=== PATIENT | female | born 1940 | race Caucasian/White ===

== ENCOUNTER 2018-05-18 08:27 | Day surgery (SDC) | payer OTHER ==
[~2018-05-18 08:27] MED LIST: ARICEPT5 MG PO; ESCITALOPRAM OX10 MG PO; GLIPIZIDE ER5 MG PO; LEVO-T125 MCG PO; LORAZEPAM0.5 MG PO; LOSARTAN-HCTZ1 EAC1 PO; PROZAC10 M1 PO; SIMVASTATIN40 MG PO
== END 2018-05-18 10:45 | disposition home or self-care (01) ==
LOC: CIR.AMB 08:27
DX: C20 Malignant neoplasm of rectum (principal)
CPT/HCPCS: 36561; C1767

== ENCOUNTER 2018-08-31 06:57 | Day surgery (SDC) | payer OTHER | END 2018-08-31 12:20 | disposition home or self-care (01) | LOC: AMB-ENDOS 06:57 | DX: D12.2 Benign neoplasm of ascending colon (principal); D12.5 Benign neoplasm of sigmoid colon; K64.8 Other hemorrhoids ==

== ENCOUNTER 2018-09-30 14:15 | Inpatient (IN) | payer OTHER ==
[~2018-09-30] VITALS: Ht 167.6 cm; Wt 72.6 kg
== END 2018-10-11 13:43 | disposition home or self-care (01) | DRG 330 ==
LOC: O/R 10-07 06:00 → SURG 10-07 06:00 → SURH 10-07 07:00 → SURG 10-07 17:07
PROVIDERS: ADMIT Colon & Rectal Surgery
PROC: 0DTP4ZZ Resection of Rectum, Percutaneous Endoscopic Approach (ICD-10-PCS; 2018-10-07)
PROC: 07TC4ZZ Resection of Pelvis Lymphatic, Percutaneous Endoscopic Approach (ICD-10-PCS; 2018-10-07)
PROC: 0DJD8ZZ Inspection of Lower Intestinal Tract, Via Natural or Artificial Opening Endoscopic (ICD-10-PCS; 2018-10-07)
PROC: 0D1B4Z4 Bypass Ileum to Cutaneous, Percutaneous Endoscopic Approach (ICD-10-PCS; principal; 2018-10-07 07:00)
DX: C20 Malignant neoplasm of rectum (principal); K57.32 Diverticulitis of large intestine without perforation or abscess without bleeding; K56.690 Other partial intestinal obstruction; C19 Malignant neoplasm of rectosigmoid junction; R59.0 Localized enlarged lymph nodes; E11.9 Type 2 diabetes mellitus without complications; I10 Essential (primary) hypertension; E03.8 Other specified hypothyroidism; F03.90 Unspecified dementia, unspecified severity, without behavioral disturbance, psychotic disturbance, mood disturbance, and anxiety; K63.5 Polyp of colon; Z79.4 Long term (current) use of insulin

== ENCOUNTER 2018-10-19 20:14 | Emergency (ER) | payer OTHER ==
[~2018-10-19] VITALS: Ht 167.6 cm; Wt 72.6 kg
[2018-10-19] MEDS ORDERED: IRBESARTAN-HCT1 EACH (21:10)
== END 2018-10-20 12:58 | disposition home or self-care (01) ==
LOC: ER 20:14
DX: K94.19 Other complications of enterostomy (principal); E86.0 Dehydration

== ENCOUNTER 2018-10-21 16:23 | Inpatient (IN) | payer OTHER ==
[~2018-10-21] VITALS: Ht 167.6 cm; Wt 68.0 kg
[~2018-10-21 16:23] MED LIST changes: +IRBESARTAN-HCT1 EACH
== END 2018-10-24 09:40 | disposition home or self-care (01) | DRG 699 ==
LOC: ER 16:23 → SURG 17:41
PROVIDERS: ADMIT Colon & Rectal Surgery
PROC: BT4JZZZ Ultrasonography of Kidneys and Bladder (ICD-10-PCS; principal; 2018-10-21)
PROC: BW4GZZZ Ultrasonography of Pelvic Region (ICD-10-PCS; 2018-10-23)
DX: N31.8 Other neuromuscular dysfunction of bladder (principal); C20 Malignant neoplasm of rectum; R33.8 Other retention of urine; E86.0 Dehydration; E87.8 Other disorders of electrolyte and fluid balance, not elsewhere classified; F03.90 Unspecified dementia, unspecified severity, without behavioral disturbance, psychotic disturbance, mood disturbance, and anxiety; E03.8 Other specified hypothyroidism; Z93.2 Ileostomy status; E11.9 Type 2 diabetes mellitus without complications; Z79.4 Long term (current) use of insulin

== ENCOUNTER 2019-01-16 09:47 | Outpatient (CLI) | payer OTHER | END 2019-01-16 09:55 | disposition home or self-care (01) | LOC: RX STUDY 09:47 | DX: C20 Malignant neoplasm of rectum (principal); Z93.2 Ileostomy status ==

== ENCOUNTER 2019-01-27 08:36 | Inpatient (IN) | payer OTHER ==
[~2019-01-27] VITALS: Ht 152.4 cm; Wt 74.8 kg
[2019-02-03] MEDS ORDERED: ZYPREXA ZYDIS20 MG (10:04)
[2019-02-03] MEDS ORDERED: FLUOXETINE HCL10 MG (10:04)
[2019-02-03] MEDS ORDERED: RANITIDINE HCL300 M1 PO (10:05)
== END 2019-02-16 09:12 | disposition home or self-care (01) | DRG 330 ==
LOC: SURG 02-03 11:30 → O/R 02-03 11:30 → SURH 02-10 05:10 → O/R 02-10 05:10 → SURG 02-10 11:00 → SURH 02-10 11:37
PROVIDERS: ADMIT Colon & Rectal Surgery
PROC: 0DQB4ZZ Repair Ileum, Percutaneous Endoscopic Approach (ICD-10-PCS; principal; 2019-02-10 11:00)
PROC: 8E0ZXY6 Isolation (ICD-10-PCS; 2019-02-13)
DX: Z43.2 Encounter for attention to ileostomy (principal); C20 Malignant neoplasm of rectum; E11.9 Type 2 diabetes mellitus without complications; I10 Essential (primary) hypertension; E86.0 Dehydration; E03.8 Other specified hypothyroidism; K63.5 Polyp of colon; E87.8 Other disorders of electrolyte and fluid balance, not elsewhere classified; A08.8 Other specified intestinal infections; G30.0 Alzheimer's disease with early onset; F02.80 Dementia in other diseases classified elsewhere, unspecified severity, without behavioral disturbance, psychotic disturbance, mood disturbance, and anxiety; Z79.4 Long term (current) use of insulin

== ENCOUNTER → 2020-06-13 08:00 | Outpatient (CLI) | payer OTHER ==
[~2020-06-13 08:00] MED LIST changes: +FLUOXETINE HCL10 MG; +RANITIDINE HCL300 M1 PO; +ZYPREXA ZYDIS20 MG
== END | disposition home or self-care (01) ==
LOC: LAB 08:00 → ADM 13:30 → EDSTATUS 06-19 13:30 → AMB-ENDOS 06-19 13:30
PROVIDERS: ATTEND Colon & Rectal Surgery
DX: U07.1 COVID-19 (principal); Z85.048 Personal history of other malignant neoplasm of rectum, rectosigmoid junction, and anus; Z86.010 Personal history of colon polyps; R19.4 Change in bowel habit; Z12.11 Encounter for screening for malignant neoplasm of colon; Z12.12 Encounter for screening for malignant neoplasm of rectum